=== PATIENT | female | born 1955 | race Caucasian/White ===

== ENCOUNTER → 2020-12-27 13:39 | Outpatient (BNVA) | payer MEDICARE, SELFPAY | PROVIDERS: PCP Nurse Practitioner Family; Visit Provider Nurse Practitioner | DX: D69.6 Thrombocytopenia, unspecified (principal); K74.60 Unspecified cirrhosis of liver; K21.9 Gastro-esophageal reflux disease without esophagitis; Z79.899 Other long term (current) drug therapy | CPT/HCPCS: 99212 ==

== ENCOUNTER → 2021-01-25 13:51 | Outpatient (BNVA) | payer MEDICARE, SELFPAY | PROVIDERS: PCP Nurse Practitioner Family; Visit Provider Nurse Practitioner | DX: Z13.89 Encounter for screening for other disorder (principal) | CPT/HCPCS: Q3014 ==

== ENCOUNTER 2021-03-28 12:46 | Outpatient (REF) | payer MEDICARE, SELFPAY ==
[2021-03-28 14:45] LABS: MANUAL DIFF FLAG NO
[2021-03-28 14:50] LABS: Basophils Percent Auto 0.5 % (0-2); Eosinophils Percent Auto 1.1 % (0-4); Hematocrit 40.4 % (37-47); Hemoglobin 13.4 g/dl (12.0-16.0); Lymphocytes Absolute Auto 1.3 X10*3/uL (1.2-4.9); Lymphocytes Percent Auto 34.2 % (20-40); Mean Corpuscular HGB Conc 33.2 g/dl (31.0-35.0); Mean Corpuscular Volume 90.4 fL (80-98); Mean Platelet Volume 11.9 fL (9.4-12.3); Monocytes Absolute Auto 0.3 X10*3/uL (0.1-1.2); Monocytes Percent Auto 8.6 % (2-11); Neutrophils Absolute Auto 2.1 X10*3/uL (2.0-8.3); Neutrophils Percent Auto 55.6 % (45-73); Red Blood Count 4.47 X10*6/uL (4.20-5.50); Red Cell Distribution Width 14.2 % (11.0-16.0); White Blood Count 3.7 X10*3/uL (4.8-10.8)
[2021-03-28 14:54] LABS: Platelet Count 94 X10*3/uL (160-400)
[2021-03-28 15:15] LABS: Alanine Aminotransferase 34 U/L (0-31); Albumin Level 3.9 g/dL (3.5-5.0); Alkaline Phosphatase 132 U/L (39-117); Anion Gap 11 (12-20); Aspartate Amino Transferase 47 U/L (5-31); Bilirubin Total 1.2 mg/dL (0.0-1.0); Blood Urea Nitrogen 10 mg/dL (9-16); Calcium 9.3 mg/dL (8.4-10.2); Carbon Dioxide 26 mmol/L (22-29); Chloride 108 mmol/L (96-108); Estimated Glomerular Filt Rate > 60; Glucose Random 144 mg/dL (60-115); Potassium 4.4 mmol/L (3.3-5.1); Sodium 141 mmol/L (135-145); Total Protein 7.2 g/dL (6.5-8.0)
[2021-03-28 15:33] LABS: Ferritin 31 ng/mL (10-250)
[2021-03-29 11:42] LABS: Alpha Fetoprotein 2.9 ng/mL
[2021-03-31 22:37] LABS: Smooth Muscle Antibody 24 U (<20)
== END 2021-03-28 12:47 | disposition home or self-care (01) ==
LOC: HO.LAB 12:46
PROVIDERS: PCP Family Medicine; Referring Provider Family Medicine; Visit Provider Nurse Practitioner
DX: D69.6 Thrombocytopenia, unspecified (principal); K74.60 Unspecified cirrhosis of liver; K21.9 Gastro-esophageal reflux disease without esophagitis
CPT/HCPCS: 36415; 80053; 82105; 82728; 85025; 86255; 99212

== ENCOUNTER → 2021-04-26 14:48 | Outpatient (REF) | payer MEDICARE, SELFPAY | LOC: HO.SL 14:48 | PROVIDERS: PCP Family Medicine; Visit Provider Family Medicine | DX: G47.30 Sleep apnea, unspecified (principal) | CPT/HCPCS: 95806 ==

== ENCOUNTER 2021-05-10 09:28 | Outpatient (REF) | payer MEDICARE, SELFPAY ==
--- NOTE | ~2021-05-10 | US_ITS ---
EXAMINATION: US ABDOMEN COMPLETE CLINICAL INFORMATION: Cirrhosis of liver. COMPARISON: Ultrasound abdomen complete 11/11/2019 and 01/01/2019. CT abdomen 01/31/2019. TECHNIQUE: Real-time imaging of the abdominal viscera. FINDINGS: PANCREAS: Normal. ABDOMINAL AORTA: The proximal, mid, and distal segments are normal in caliber. INFERIOR VENA CAVA: Visualized portions are normal. LIVER: There is a coarse inhomogeneous increased echogenicity throughout the liver which may represent primary hepatocellular disease, possibly due to hepatic steatosis. The liver is normal in size. The liver contour is normal. No focal hepatic lesion. There is no intrahepatic biliary duct dilatation seen. GALLBLADDER: Surgically absent. COMMON BILE DUCT: Normal in caliber measuring 0.63 cm in diameter. RIGHT KIDNEY: Normal. No hydronephrosis. No renal calculi or focal parenchymal lesions. The kidney measures 10.0 cm in maximum dimension. LEFT KIDNEY: Normal. No hydronephrosis. No renal calculi or focal parenchymal lesions. The kidney measures 11.0 cm in maximum dimension. SPLEEN: The spleen measures 13.4 cm in maximum dimension. FREE FLUID: None. US/US abdomen complete IMPRESSION: 1. There is primary hepatocellular disease, possibly due to hepatic steatosis. Otherwise, normal study.
== END 2021-05-10 09:29 | disposition home or self-care (01) ==
LOC: HO.US 09:28
PROVIDERS: Visit Provider Nurse Practitioner
DX: K74.60 Unspecified cirrhosis of liver (principal); D69.6 Thrombocytopenia, unspecified
CPT/HCPCS: 76700

== ENCOUNTER → 2021-06-28 13:18 | Outpatient (BNVA) | payer MEDICARE, SELFPAY | PROVIDERS: PCP Family Medicine; Visit Provider Nurse Practitioner | DX: K74.60 Unspecified cirrhosis of liver (principal); K21.9 Gastro-esophageal reflux disease without esophagitis; K59.04 Chronic idiopathic constipation | CPT/HCPCS: Q3014 ==

== ENCOUNTER → 2021-08-21 19:33 | Outpatient (REF) | payer MEDICARE, SELFPAY | LOC: HO.SL 19:33 | PROVIDERS: Visit Provider Family Medicine | DX: G47.30 Sleep apnea, unspecified (principal) | CPT/HCPCS: 95810 ==

== ENCOUNTER 2021-09-15 12:15 | Outpatient (REF) | payer MEDICARE, SELFPAY ==
--- NOTE | ~2021-09-15 | MM_ITS ---
EXAMINATION: MM DIAGNOSTIC DIGITAL BREAST TOMOSYNTHESIS, BILATERAL US DIAGNOSTIC ULTRASOUND BREAST, LEFT CLINICAL INFORMATION: Chronic palpable mass medial left breast, recently increased in size. Due for yearly. The lifetime risk of breast cancer based on the Tyrer-Cuzick Model is 4%. COMPARISON: Mammography: 03/07/2019, 07/18/2018, 01/17/2018, 01/07/2018 TECHNIQUE: Digital breast tomosynthesis is performed in both the craniocaudal and mediolateral oblique views along with computer-aided detection (CAD). Synthesized 2D images are generated from the tomosynthesis. Additional left MLO view is provided. Ultrasound left breast is targeted to the area of palpable concern parasternal region. Patient is able to point to area of concern at time of imaging. Grayscale imaging and color Doppler are performed without and with harmonics. FINDINGS: The breasts are almost entirely fatty (ACR BI-RADS breast composition Category a). There is a mass at the deep left posterior medial inferior breast corresponding to the area of palpable concern and extending to the parasternal region and beyond the deep medial [id number]. Overall size is approximately 1.5 cm. Lesion appears superficial, merging with the dermis. The remainder of the breasts are unremarkable. Background stromal markings are stable. No abnormal calcifications. The axilla are unremarkable. Ultrasound targeted to the palpable finding demonstrates an intradermal hypoechoic mass parasternal 9:00 position measuring 2.0 x 1.2 x 2.0 cm. There is a claw sign at the margin of the lesion with the dermis and a fine stalk is suggesting extending towards the skin surface. There is prominent surrounding hyperemia on color Doppler. Focus of internal color flow is noted centrally. No edema tracking in soft tissue planes. Results are discussed with the patient at time of visit. The palpable mass on the left corresponds to an intradermal lesion with prominent surrounding color flow likely inflamed sebaceous cyst. Patient notes that this is recently increased in size. There is mild visible redness to the dermis in this area. Surgical consult is recommended for management. [facility] for [facility] appointment and will call PCP with results and recommendation. MM/MM tomosynthesis diagnostic BI IMPRESSION: 1. Left: Intradermal mass corresponding to palpable lesion left breast 2.0 cm with surrounding hyperemia on color Doppler, likely sebaceous cyst with mild inflammation. 2. Right: No mammographic evidence of malignancy. ASSESSMENT: BI-RADS 3: Probably Benign RECOMMENDATION: 1. Surgical consult for management of the left breast lesion. 2. Otherwise, routine annual screening mammography. This patient's information was entered into a reminder system with a target due date for their next mammogram.
== END 2021-09-15 12:16 | disposition home or self-care (01) ==
LOC: HO.MAMMO 12:15
PROVIDERS: PCP Nurse Practitioner Family; Visit Provider Registered Nurse Community Health
DX: N63.24 Unspecified lump in the left breast, lower inner quadrant (principal)
CPT/HCPCS: 76642; 77062; 77066

== ENCOUNTER 2021-09-19 07:49 | Outpatient (REF) | payer MEDICARE, SELFPAY | END 2021-09-19 07:50 | disposition home or self-care (01) | LOC: HO.LAB 07:49 | PROVIDERS: PCP Nurse Practitioner Family; Visit Provider Surgery | DX: L72.0 Epidermal cyst (principal); E11.9 Type 2 diabetes mellitus without complications; D69.6 Thrombocytopenia, unspecified; Z83.3 Family history of diabetes mellitus; Z80.0 Family history of malignant neoplasm of digestive organs; Z79.84 Long term (current) use of oral hypoglycemic drugs; Z79.899 Other long term (current) drug therapy | CPT/HCPCS: 11403; 88304; 99202 ==

== ENCOUNTER → 2021-10-03 13:51 | Outpatient (BNVA) | payer MEDICARE, SELFPAY | PROVIDERS: PCP Nurse Practitioner Family; Referring Provider Nurse Practitioner Family; Visit Provider Surgery | DX: Z48.817 Encounter for surgical aftercare following surgery on the skin and subcutaneous tissue (principal); Z87.2 Personal history of diseases of the skin and subcutaneous tissue | CPT/HCPCS: 99212 ==

== ENCOUNTER → 2024-06-05 14:21 | Outpatient (RCR) | payer MEDICARE, SELFPAY ==
--- NOTE | 2021-03-15 14:08 | P.PNHO_ITS ---
Medical Summary - Medical Summary Date of Service: 03/15/21 Chief complaint: Follow-up Medical Summary: Thrombocytopenia diagnosed in October 2018. Mild intermittent chronic leukopenia but normal platelets until October 2018. Normal hemoglobin. Abnormal liver enzymes since 2009. Abdomen ultrasound in December 2018 showed fatty infiltration of liver/hepatocellular disease, borderline splenomegaly, spleen size 13.2 cm. Hepatitis and HIV serologies negative. Hematological workup in December 2018 showed normal vitamin B12, folate, serum protein electrophoresis and immunofixation. IgA was elevated at 776, IgM slightly suppressed at 35, normal IgG. Normal beta 2 microglobulin. Serum protein electrophoresis showed isolated elevation of beta 2 globulin consistent with acute inflammation. Elevated LFTs. Interval History Interval history: patient is here in follow-up after a long interval. She was seen back in 2019for low platelets. She has recently been told of liver cirrhosis and is quite concerned about the diagnosis. She wants to know what she can do to reverse it. She denies any skin bruising or bleeding. She denies any nausea or abdominal discomfort. No change in bowel habits. She denies hematochezia or melena. Review of Systems - Constitutional Reports as per HPI, Reports no additional constitutional complaints [facility] Family History: Family History (Last Updated 01/25/21 @ 13:56 by Gloria Ramirez) Mother Diabetes Maternal Uncle Throat cancer Sister Liver cancer Surgical History: Surgical History (Last Reviewed 01/25/21 @ 13:55 by Gloria Ramirez) Hx of colonoscopy Social History: Social History (Last Reviewed 03/15/21 @ 14:27 by Kiara Ralph RN) Living Situation History: Household Members: None Alcohol History: Alcohol intake: never Oncology Screenings - ECOG Performance Status ECOG Performance Status: 0 Home Medications and Allergies Home Medications Medication Instructions Recorded Confirmed Type buspirone 15 mg tablet 15 mg PO BID 12/27/20 03/15/21 History cholecalciferol (vitamin D3) 50 50 mcg PO DAILY 12/27/20 03/15/21 History mcg (2,000 unit) tablet fluticasone propionate 110 2 puff INHALATION BID 12/27/20 History mcg/actuation HFA aerosol inhaler hydrochlorothiazide 25 mg tablet 25 mg PO DAILY 12/27/20 03/15/21 History levothyroxine 125 mcg tablet 125 mcg PO DAILY 12/27/20 03/15/21 History metformin 500 mg tablet,extended 500 mg PO DAILY 12/27/20 03/15/21 History release 24 hr montelukast 10 mg tablet 10 mg PO DAILY 12/27/20 03/15/21 History omega-3 fatty acids-fish oil 340 1 cap PO BID 12/27/20 03/15/21 History mg-1,000 mg capsule simvastatin 20 mg tablet 20 mg PO BEDTIME 12/27/20 03/15/21 History trazodone 50 mg tablet 50 mg PO BEDTIME 12/27/20 03/15/21 History venlafaxine 150 mg 150 mg PO DAILY 12/27/20 03/15/21 History capsule,extended release 24 hr Allergies Allergy/AdvReac Type Severity Reaction Status Date / Time No Known Allergies Allergy Verified 01/25/21 13:52 Exam Vital signs: Vital Signs Temp Pulse Resp BP Pulse Ox 03/15/21 14:19 97.3 F 71 18 146/65 H 98 - Constitutional Present: no acute distress - Routine HEENT Exam Head: Present: normal inspection Eye: Present: EOMI - Routine Neck Exam Absent: lymphadenopathy - Routine Respiratory Exam Present: CTAB - Routine Cardiovascular Exam Cardiovascular: Present: S1, S2 - Routine Abdominal Exam Present: soft Data - Labs CBC & Chem 7: 03/15/21 14:20 Progress Note: A/P (1) Thrombocytopenia Status: Chronic Assessment and plan: 1. This is a 63-year-old woman with chronic thrombocytopenia since October 2018. She has liver cirrhosis. She was told of fatty liver in the past. She has slight worsening of her thrombocytopenia. She has no history of bruising or bleeding. Today we discussed dietary changes and exercise to help weight loss. Her hematological workup was negative for any other cause for thrombocytopenia or leukopenia. She is being monitored by her sas statistical programmer for her liver cirrhosis and screening for HCC. No intervention for thrombocytopenia is needed at this time. Followup in 6 months. - Time Spent With Patient 25 - 35 minutes
[2021-03-15 14:19] VITALS: BP 146/65; PULSE 71; RESP 18; TEMP 36.3; O2SAT 98; BMI 37.0
[2021-03-15 14:26] LABS: MANUAL DIFF FLAG NO
[2021-03-15 14:33] LABS: Basophils Percent Auto 0.3 % (0-2); Eosinophils Absolute Auto 0.1 X10*3/uL (0.0-0.4); Eosinophils Percent Auto 1.9 % (0-4); Hematocrit 38.8 % (37-47); Hemoglobin 12.8 g/dl (12.0-16.0); Lymphocytes Absolute Auto 1.1 X10*3/uL (1.2-4.9); Lymphocytes Percent Auto 33.6 % (20-40); Mean Corpuscular Hemoglobin 29.8 pg (27.0-33.0); Mean Corpuscular Volume 90.4 fL (80-98); Mean Platelet Volume 11.4 fL (9.4-12.3); Monocytes Absolute Auto 0.2 X10*3/uL (0.1-1.2); Monocytes Percent Auto 7.2 % (2-11); Neutrophils Absolute Auto 1.8 X10*3/uL (2.0-8.3); Red Blood Count 4.29 X10*6/uL (4.20-5.50); White Blood Count 3.2 X10*3/uL (4.8-10.8)
[2021-03-15 14:34] LABS: Platelet Count 81 X10*3/uL (160-400)
--- NOTE | 2021-03-15 14:51 | MHC.HEMONC ---
Pt here for f/u with Dr Torres for thrombocytopenia. She is also being followed for new dx ciarrhosis. Labs drawn and will be evaluated by Dr Torres.
[2021-03-15 14:56] LABS: Iron 85 mcg/dL (30-160); Percent Iron Saturation 23 % (15-50); Total Iron Binding Capacity 366 mcg/dL (228-428); Unsaturated Iron Binding 281 ug/dL
[2021-03-15 15:30] LABS: Folate 15.4 ng/mL (> or = 4.0); Vitamin B12 365 pg/mL (200-900)
== END | disposition home or self-care (01) ==
LOC: HO.ONC 03-15 13:48
PROVIDERS: PCP Family Medicine; Visit Provider Internal Medicine
DX: D69.6 Thrombocytopenia, unspecified (principal); K74.60 Unspecified cirrhosis of liver
CPT/HCPCS: 36415; 82607; 82746; 83540; 85025; 99213